=== PATIENT | female | born 1940 | race Caucasian/White ===

== ENCOUNTER 2016-10-29 11:54 | Emergency (ER) | payer OTHER ==
[~2016-10-29] VITALS: Ht 165.1 cm; Wt 72.0 kg
[~2016-10-29 11:54] MED LIST: BLOOD PRESSURE MED PO; GLUCTAB PO; LORTA5 PO; MELO7.5T PO; SIMV20 PO
[2016-10-29 12:02] VITALS: BP 169/81; PULSE 68; RESP 20; TEMP 98.4; O2SAT 97
[2016-10-29] MEDS ORDERED: METF500T PO (12:09)
[2016-10-29] MEDS ORDERED: ATEN25TA PO (12:09)
[2016-10-29] MEDS ORDERED: SIMV20TA PO (12:09)
[2016-10-29] MEDS ORDERED: SODIUM CHLOR 0.9% 1000 ML INJ 1,000 ML IV ONE (12:13)
[2016-10-29] MEDS ORDERED: SODIUM CHLORIDE 0.9% FLUSH 5 ML FLUSH IVF PRN (12:15)
[2016-10-29] MEDS ORDERED: MECLIZINE HCL 25 MG TAB PO ONE (12:15)
[2016-10-29] MEDS ORDERED: ONDANSETRON HCL 4 MG/2 ML VIAL IVP ONE (12:15)
--- NOTE | 2016-10-29 12:20 | PD ---
HPI Chief Complaint: Dizziness Time Seen by Provider: 12:08 Travel History International Travel<30 days: No Contact w/Intl Traveler<30days: No Traveled to known affect area: No History of Present Illness HPI The patient was seen and examined in the presence of the nurse. This patient complains of a room spinning dizziness sensation and intermittent pounding headache. Symptoms have been present for 7 days. They're moderately severe. No alleviating factors. Dizziness is worse with opening her eyes were turning her head to either side. Denies fever or head injury. She takes no blood thinners. PFSH Past Medical History High Cholesterol: Yes Diabetes: Yes Patient Takes Glucophage: Yes Diminished Hearing: No Diverticulitis: Yes Hypertension: Yes Immunizations Current: Yes ?: Not Menopausal: Yes Past Surgical History Section: Yes Genitourinary Surgery: Yes (BLADDER TACKED) Gynecologic Surgery: Yes (B/L OOPHRECTOMY) Tonsillectomy: Yes Social History Alcohol Use: No Tobacco Use: No Substance Use: No Allergies-Medications (Allergen,Severity, Reaction): Coded Allergies: No Known Allergies (Verified , 10/29/16) Reported Meds & Prescriptions Reported Meds & Active Scripts Active Reported Amlodipine-Benazepril 5-10 Mg Cap 1 Cap PO DAILY Atenolol 25 Mg Tab 12.5 Mg PO DAILY Simvastatin 20 Mg Tab 20 Mg PO DAILY Metformin (Metformin HCl) 500 Mg Tab 500 Mg PO BIDPC With meals [Blood Pressure Med] Unknown Dose PO DAILY Review of Systems General / Constitutional: No: Fever Eyes: No: Visual changes HENT: Positive: Headaches, Vertigo Cardiovascular: No: Chest Pain or Discomfort Respiratory: No: Shortness of Breath Gastrointestinal: Positive: Nausea, Vomiting, No: Abdominal Pain Genitourinary: No: Dysuria Musculoskeletal: No: Pain Skin: No Rash Neurologic: Positive: Dizziness, Headache, No: Weakness Psychiatric: No: Depression Endocrine: No: Polydipsia Hematologic/Lymphatic: No: Easy Bruising Physical Exam Narrative GENERAL: Well-nourished, well-developed patient with nausea and dizziness SKIN: Warm and dry. HEAD: Atraumatic. Normocephalic. EYES: Pupils equal and round. No scleral icterus. No injection or drainage. ENT: No nasal bleeding or discharge. Mucous membranes pink and moist. NECK: Trachea midline. No JVD. No meningeal signs CARDIOVASCULAR: Regular rate and rhythm. No murmur appreciated. RESPIRATORY: No accessory muscle use. Clear to auscultation. Breath sounds equal bilaterally. GASTROINTESTINAL: Abdomen soft, non-tender, nondistended. Hepatic and splenic margins not palpable. MUSCULOSKELETAL: No obvious deformities. No clubbing. No cyanosis. No edema. NEUROLOGICAL: Awake and alert. No obvious cranial nerve deficits. Motor grossly within normal limits. Normal speech. PSYCHIATRIC: Appropriate mood and affect; insight and judgment normal. Data Data Last Documented VS Vital Signs Date Time Temp Pulse Resp B/P Pulse Ox O2 Delivery O2 Flow Rate FiO2 10/29/16 12:10 82 98 Room Air 10/29/16 12:02 98.4 20 169/81 Orders Basic Metabolic Panel (Bmp) (10/29/16 12:13) Complete Blood Count With Diff (10/29/16 12:13) Ct Brain W/O Iv Contrast(Rout) (10/29/16 12:13) Ecg Monitoring (10/29/16 12:13) Iv Access Insert/Monitor (10/29/16 12:13) Oximetry (10/29/16 12:13) Meclizine (Antivert) (10/29/16 12:15) Ondansetron Inj (Zofran Inj) (10/29/16 12:15) Sodium Chloride 0.9% Flush (Ns Flush) (10/29/16 12:15) Sodium Chlor 0.9% 1000 Ml Inj (Ns 1000 M (10/29/16 12:13) Labs Laboratory Tests Test 10/29/16 12:15 White Blood Count 7.1 TH/MM3 Red Blood Count 3.92 MIL/MM3 Hemoglobin 11.6 GM/DL Hematocrit 35.2 % Mean Corpuscular Volume 89.7 FL Mean Corpuscular Hemoglobin 29.5 PG Mean Corpuscular Hemoglobin 32.9 % Concent Red Cell Distribution Width 12.7 % Platelet Count 238 TH/MM3 Mean Platelet Volume 7.8 FL Neutrophils (%) (Auto) 52.2 % Lymphocytes (%) (Auto) 39.1 % Monocytes (%) (Auto) 4.2 % Eosinophils (%) (Auto) 4.0 % Basophils (%) (Auto) 0.5 % Neutrophils # (Auto) 3.7 TH/MM3 Lymphocytes # (Auto) 2.8 TH/MM3 Monocytes # (Auto) 0.3 TH/MM3 Eosinophils # (Auto) 0.3 TH/MM3 Basophils # (Auto) 0.0 TH/MM3 CBC Comment DIFF FINAL Differential Comment Sodium Level 140 MEQ/L Potassium Level 4.6 MEQ/L Chloride Level 107 MEQ/L Carbon Dioxide Level 21.8 MEQ/L Anion Gap 11 MEQ/L Blood Urea Nitrogen 17 MG/DL Creatinine 1.20 MG/DL Estimat Glomerular Filtration 44 ML/MIN Rate Random Glucose 120 MG/DL Calcium Level 9.4 MG/DL [facility] Medical Decision Making Medical Screen Exam Complete: Yes Emergency Medical Condition: Yes Medical Record Reviewed: Yes Differential Diagnosis Positional vertigo, labyrinthitis, intracranial hemorrhage, migraine Narrative Course I have reviewed the patient's electronic medical record. Patient is neurologically intact. IV placed I gave her IV Zofran and 1 L normal saline IV. After nausea improved she will receive meclizine dose Brain CT is normal CBC is normal Metabolic profile is normal I reviewed her EKG which shows sinus rhythm at [address] elevation Extended cardiac monitoring reveals sinus rhythm without ectopy On recheck she feels improved Her presentation is most consistent with positional vertigo. No suspicion of CVA I prescribed her some meclizine and Zofran Diagnosis Primary Impression: Benign positional vertigo Qualified Code: H81.10 - Benign positional vertigo, unspecified laterality Additional Impression: Headache Qualified Code: G44.209 - Acute non intractable tension-type headache Additional Instructions: The patient was advised to follow up with their physician and return if they worsen. The patient was warned about potential sedation for the medications they will receive on prescription. Med/Other Pt SpecificInfo: Prescription(s) given Scripts Meclizine 25 Mg Tab25 Mg PO TID PRN (VERTIGO) #21 TAB Ref 0 Prov:George Mcqueen MD 10/29/16 Ondansetron (Zofran)4 Mg Tab4 Mg PO Q6HR PRN (NAUSEA OR VOMITING) #12 TAB Ref 0 Prov:George Mcqueen MD 10/29/16 Disposition: 01 DISCHARGE HOME Condition: Stable George Mcqueen MD Oct 29, 2016 12:20
[2016-10-29 12:34] LABS: AUTOMATED NEUTROPHIL # 3.7 TH/MM3 (1.8-7.7); BASOPHIL % 0.5 % (0.0-2.0); EOSINOPHIL # 0.3 TH/MM3 (0-0.4); HEMATOCRIT 35.2 % (35.0-46.0); HEMO FLAGS DIFF FINAL; LYMPH % 39.1 % (9.0-44.0); LYMPHOCYTE # 2.8 TH/MM3 (1.0-4.8); MEAN CELL VOLUME 89.7 FL (80.0-100.0); MEAN CORPUSCULAR HEMOGLOBIN 29.5 PG (27.0-34.0); MEAN CORPUSCULAR HGB CONC 32.9 % (32.0-36.0); MONO % 4.2 % (0.0-8.0); NEUT % 52.2 % (16.0-70.0); PLATELET COUNT 238 TH/MM3 (150-450); RED BLOOD COUNT 3.92 MIL/MM3 (4.00-5.30); RED CELL DISTRIBUTION WIDTH 12.7 % (11.6-17.2); WHITE BLOOD COUNT 7.1 TH/MM3 (4.0-11.0)
[2016-10-29 12:42] LABS: POTASSIUM 4.6 MEQ/L (3.5-5.1)
[2016-10-29 12:45] LABS: BICARBONATE 21.8 MEQ/L (21.0-32.0)
--- NOTE | 2016-10-29 13:02 | RADHPO ---
EXAM DATE/TIME: 10/29/2016 12:40 [facility] COMPARISON: No previous studies available for comparison. INDICATIONS : Dizziness and nausea today. RADIATION DOSE: 60.14 CTDIvol (mGy) MEDICAL HISTORY : Hypertension. diabetes SURGICAL HISTORY : None. ENCOUNTER: Initial ACUITY: 1 day PAIN SCALE: 0/10 LOCATION: Bilateral head TECHNIQUE: Multiple contiguous axial images were obtained of the head. Using automated exposure control and adj ustment of the mA and/or kV according to patient size, radiation dose was kept as low as reasonably a chievable to obtain optimal diagnostic quality images. FINDINGS: CEREBRUM: The ventricles are normal for age. There is bilateral cortical atrophy characteristic for patient's a ge. No evidence of midline shift, mass lesion, hemorrhage or acute infarction. No extra-axial fluid collections are seen. POSTERIOR FOSSA: The cerebellum and brainstem are intact. The 4th ventricle is midline. The cerebellopontine angle i s unremarkable. EXTRACRANIAL: The visualized portion of the orbits is intact. SKULL: The calvaria is intact. No evidence of skull fracture. CONCLUSION: Normal examination for a patient of this age. Gumaro Joy MD on October 29, 2016 at 13:00 Board Certified Radiologist. This report was verified electronically.
[2016-10-29] MEDS ORDERED: AMLO5CAP PO (13:21)
[2016-10-29] MEDS ORDERED: MECL-62 PO (13:26)
[2016-10-29] MEDS ORDERED: ZOFR4TAB PO (13:26)
[2016-10-29 13:29] VITALS: BP 163/81; O2SAT 100
--- NOTE | 2016-10-30 13:19 | EKG ---
Date Performed: 10/29/2016 Time Performed: 12:10:56 PTAGE: 76 years EKG: Sinus rhythm Lateral T wave changes are nonspecific Borderline ECG Compared to prior tracing no significant cortes e PREVIOUS TRACING : 07/10/2011 10.05 DOCTOR: Robi Lynch Interpretating Date/Time 10/30/2016 13:15:11
== END 2016-10-29 13:33 | disposition home or self-care (01) ==
LOC: PHED 11:54
DX: H81.10 Benign paroxysmal vertigo, unspecified ear (principal); R51 Headache; E78.00 Pure hypercholesterolemia, unspecified; E11.9 Type 2 diabetes mellitus without complications; I10 Essential (primary) hypertension; R94.31 Abnormal electrocardiogram [ECG] [EKG]
CPT/HCPCS: 70450; 80048; 85025; 93005; 96361; 96374; 99284; J2405; J7030

== ENCOUNTER 2017-07-27 06:09 | Emergency (ER) | payer OTHER ==
[~2017-07-27] VITALS: Ht 165.1 cm; Wt 58.8 kg
[~2017-07-27 06:09] MED LIST changes: +AMLO5CAP PO; +ATEN25TA PO; -GLUCTAB PO; -LORTA5 PO; +MECL-62 PO; -MELO7.5T PO; +METF500T PO; -SIMV20 PO; +SIMV20TA PO; +ZOFR4TAB PO
[2017-07-27 06:16] VITALS: BP 158/70; PULSE 71; RESP 20; TEMP 97.7; O2SAT 98
[2017-07-27 06:25] VITALS: BP 158/70; PULSE 71; RESP 20; TEMP 97.7; O2SAT 98
[2017-07-27] MEDS ORDERED: SODIUM CHLOR 0.9% 1000 ML INJ 1,000 ML IV SCH (06:41)
[2017-07-27] MEDS ORDERED: SODIUM CHLORIDE 0.9% FLUSH 10 ML FLUSH IV FLUSH PRN (06:45)
--- NOTE | 2017-07-27 06:47 | PD ---
HPI Chief Complaint: Abdominal Pain Time Seen by Provider: 06:33 Travel History International Travel<30 days: No Contact w/Intl Traveler<30days: No Traveled to known affect area: No History of Present Illness HPI This is a 77-year-old female who has a history of diverticulitis who presents to the emergency department with left lower quadrant abdominal pain that started last evening, constant, moderate severity with no associated fevers or chills. She denies any nausea or vomiting. She did have some loose stool last night. She denies any dysuria, urinary urgency or frequency. She had diverticulitis last in 2008 and at that time had an exploratory surgery for abscess. She's had a hysterectomy and a cholecystectomy. PFSH Past Medical History High Cholesterol: Yes Diabetes: Yes Patient Takes Glucophage: No Diminished Hearing: No Diverticulitis: Yes Hypertension: Yes Immunizations Current: Yes Tetanus Vaccination: > 5 Years ?: Not Menopausal: Yes Past Surgical History Section: Yes Cholecystectomy: Yes Genitourinary Surgery: Yes (BLADDER TACKED) Gynecologic Surgery: Yes (B/L OOPHRECTOMY) Hysterectomy: Yes Tonsillectomy: Yes Social History Alcohol Use: Yes (RARELY) Tobacco Use: No Substance Use: No Allergies-Medications (Allergen,Severity, Reaction): Coded Allergies: No Known Allergies (Verified , 07/27/17) Reported Meds & Prescriptions Reported Meds & Active Scripts Active Reported Atenolol 25 Mg Tab 12.5 Mg PO DAILY Simvastatin 20 Mg Tab 20 Mg PO DAILY Metformin (Metformin HCl) 500 Mg Tab 500 Mg PO BIDPC With meals Review of Systems Except as stated in HPI: all other systems reviewed are Neg Physical Exam Narrative GENERAL:Well appearing, no acute distress SKIN: Focused skin assessment warm and dry. HEAD: Atraumatic. Normocephalic. EYES: Pupils equal and round. No injection or drainage. ENT: Moist mucous membranes NECK: Trachea midline. CARDIOVASCULAR: Regular rate and rhythm. No murmur appreciated. RESPIRATORY: Clear to auscultation. Breath sounds equal bilaterally. GASTROINTESTINAL: Abdomen soft, tender to palpation in the left upper and left lower quadrants with guarding MUSCULOSKELETAL: No obvious deformities. NEUROLOGICAL: Awake and alert. No obvious cranial nerve deficits. Moving all extremities. PSYCHIATRIC: Appropriate mood and affect; insight and judgment normal. Data Data Last Documented VS Vital Signs Date Time Temp Pulse Resp B/P (MAP) Pulse Ox O2 Delivery O2 Flow Rate FiO2 07/27/17 06:25 97.7 71 20 158/70 (99) 98 Orders Orders Complete Blood Count With Diff (07/27/17 06:41) Comprehensive Metabolic Panel (07/27/17 06:41) Lipase (07/27/17 06:41) Urinalysis - C+S If Indicated (07/27/17 06:41) Ct Abd/Pel W Iv Contrast(Rout) (07/27/17 06:41) Iv Access Insert/Monitor (07/27/17 06:41) Ecg Monitoring (07/27/17 06:41) Oximetry (07/27/17 06:41) Sodium Chlor 0.9% 1000 Ml Inj (Ns 1000 M (07/27/17 06:41) Sodium Chloride 0.9% Flush (Ns Flush) (07/27/17 06:45) MDM Medical Decision Making Medical Screen Exam Complete: Yes Emergency Medical Condition: Yes Differential Diagnosis Diverticulitis, pancreatitis, colitis, nephrolithiasis, pyelonephritis Narrative Course This is a 77-year-old female who presents to the emergency department with left lower quadrant abdominal pain that started last evening. My chief concern would be for diverticulitis. Labs will be obtained and CT abdomen and pelvis was ordered. Oncoming physician will follow-up on results. Sheri Cason MD Jul 27, 2017 06:47
[2017-07-27 07:21] LABS: AUTOMATED NEUTROPHIL # 6.8 TH/MM3 (1.8-7.7); BASOPHIL % 0.3 % (0.0-2.0); EOSINOPHIL # 0.4 TH/MM3 (0-0.4); EOSINOPHIL % 3.7 % (0.0-4.0); HEMATOCRIT 34.5 % (35.0-46.0); HEMOGLOBIN 11.5 GM/DL (11.6-15.3); LYMPH % 20.2 % (9.0-44.0); LYMPHOCYTE # 1.9 TH/MM3 (1.0-4.8); MEAN CELL VOLUME 88.4 FL (80.0-100.0); MEAN CORPUSCULAR HEMOGLOBIN 29.4 PG (27.0-34.0); MEAN CORPUSCULAR HGB CONC 33.2 % (32.0-36.0); MEAN PLATELET VOLUME 7.3 FL (7.0-11.0); MONO % 4.4 % (0.0-8.0); MONOCYTE # 0.4 TH/MM3 (0-0.9); NEUT % 71.4 % (16.0-70.0); PLATELET COUNT 284 TH/MM3 (150-450); RED CELL DISTRIBUTION WIDTH 12.8 % (11.6-17.2); WHITE BLOOD COUNT 9.5 TH/MM3 (4.0-11.0)
[2017-07-27 07:26] LABS: CHLORIDE 103 MEQ/L (98-107); SODIUM (NA) 137 MEQ/L (136-145)
[2017-07-27 07:30] LABS: BLOOD UREA NITROGEN 23 MG/DL (7-18); CALCIUM 9.7 MG/DL (8.5-10.1); GLUCOSE,RANDOM 90 MG/DL (74-106); LIPASE 307 U/L (73-393)
[2017-07-27 07:33] LABS: BILIRUBIN, URINE NEG (NEG); BLOOD, URINE NEG (NEG); GLUCOSE,URINE NEG (NEG); KETONE, URINE NEG (NEG); NITRITE,URINE NEG (NEG); PH, URINE 5.5 (5.0-8.5); URINE LEUKOCYTE ESTERASE NEG (NEG)
[2017-07-27 07:33] LABS: ALT (GPT) 21 U/L (10-53); AST (GOT) 18 U/L (15-37); GLOMERULAR FILTRATION RATE 40 ML/MIN (>89)
[2017-07-27 07:35] LABS: TOTAL BILIRUBIN ADULT 0.4 MG/DL (0.2-1.0); TOTAL PROTEIN 7.9 GM/DL (6.4-8.2)
[2017-07-27 07:36] LABS: ALKALINE PHOSPHATASE 84 U/L (45-117)
[2017-07-27 07:40] LABS: RBC, URINE 0-3 /hpf (0-3); URINE COLOR YELLOW (YELLW/STRAW)
[2017-07-27 07:41] LABS: SQUAMOUS EPITHELIAL CELL URINE 0-5 /hpf (0-5)
[2017-07-27] MEDS ORDERED: IODIXANOL 320 MG/ML 10 ML VIAL (for Rad CT) IVCONTRAST ONE (07:50)
--- NOTE | 2017-07-27 08:48 | RADRPT ---
EXAM DATE/TIME: 07/27/2017 07:48 [facility] COMPARISON: No previous studies available for comparison. INDICATIONS : Left lower quadrant pain. IV CONTRAST: 50 cc Visipaque (iodixanol) IV ORAL CONTRAST: No oral contrast ingested. RADIATION DOSE: 5.90 CTDIvol (mGy) MEDICAL HISTORY : Diabetes mellitus type 2. Diverticulitis. Hypertension. SURGICAL HISTORY : Cholecystectomy. section.Hysterectomy.Bladder tuck. ENCOUNTER: Initial ACUITY: 1 day PAIN SCALE: 5/10 LOCATION: Left lower quadrant TECHNIQUE: Volumetric scanning of the abdomen and pelvis was performed. Using automated exposure control and ad justment of the mA and/or kV according to patient size, radiation dose was kept as low as reasonably achievable to obtain optimal diagnostic quality images. DICOM format image data is available electro nically for review and comparison. FINDINGS: LOWER LUNGS: The visualized lower lungs are clear. LIVER: Homogeneous density without lesion. There is no dilation of the biliary tree. The gallbladder is reyna gically absent. SPLEEN: Normal size without lesion. PANCREAS: Within normal limits. KIDNEYS: Normal in size and shape. There is no mass, stone or hydronephrosis. ADRENAL GLANDS: Within normal limits. VASCULAR: There is no aortic aneurysm. BOWEL/MESENTERY: There is an acute inflammatory process involving the distal descending colon. There is an inflamed di verticulum with stranding of the adjacent fat. Wall thickening. No obstruction, perforation, or absce ss. Remaining bowel structures are unremarkable. No free air or free fluid. ABDOMINAL WALL: Within normal limits. RETROPERITONEUM: There is no lymphadenopathy. BLADDER: No wall thickening or mass. REPRODUCTIVE: Within normal limits. INGUINAL: There is no lymphadenopathy or hernia. MUSCULOSKELETAL: Within normal limits for patient age. CONCLUSION: 1. Acute distal descending colon diverticulitis. No perforation, abscess, or obstruction. 2. Prior cholecystectomy. Blas Ash Jr., MD on July 27, 2017 at 8:28 Board Certified Radiologist. This report was verified electronically.
[2017-07-27] MEDS ORDERED: CIPR-9 PO (09:01)
[2017-07-27] MEDS ORDERED: IBUP-1129 PO (09:01)
[2017-07-27] MEDS ORDERED: METR-1 PO (09:01)
--- NOTE | 2017-07-27 09:01 | PD ---
Physical Exam Date Seen by Provider: Jul 27, 2017 Time Seen by Provider: 07:00 Narrative 77-year-old female patient seen initially by Dr. Cason, please see her note for further details, awaiting CAT scan in for further evaluation. Laboratory Tests Test 07/27/17 06:58 07/27/17 07:06 Red Blood Count 3.90 MIL/MM3 (4.00-5.30) Hemoglobin 11.5 GM/DL (11.6-15.3) Hematocrit 34.5 % (35.0-46.0) Neutrophils (%) (Auto) 71.4 % (16.0-70.0) Blood Urea Nitrogen 23 MG/DL (7-18) Creatinine 1.30 MG/DL (0.50-1.00) Estimat Glomerular Filtration Rate 40 ML/MIN (>89) Last 24 hours Impressions Abdomen/Pelvis CT 07/27/1741 Signed Impressions: Service Date/Time: , July 27, 2017 07:48 - CONCLUSION: 1. Acute distal descending colon diverticulitis. No perforation, abscess, or obstruction. 2. Prior cholecystectomy. Blas Ash Jr., MD BUN/creatinine creatinine is mildly elevated, I suspect some mild dehydration. Her creatinine is fairly close to baseline. Her CAT scan is showing signs of diverticulitis which she has a history of. No signs of diverticular abscesses or any other acute processes. At this point, patient is resting comfortably in the ER reevaluation at 8:50 AM. My plan would be to release her with treatment for diverticulitis and follow-up with primary care physician. Return for worsening in symptoms as needed. The plan has been discussed with her and she states understanding. Data Data Last Documented VS Vital Signs Date Time Temp Pulse Resp B/P (MAP) Pulse Ox O2 Delivery O2 Flow Rate FiO2 07/27/17 06:25 97.7 71 20 158/70 (99) 98 Orders Orders Complete Blood Count With Diff (07/27/17 06:41) Comprehensive Metabolic Panel (07/27/17 06:41) Lipase (07/27/17 06:41) Urinalysis - C+S If Indicated (07/27/17 06:41) Ct Abd/Pel W Iv Contrast(Rout) (07/27/17 06:41) Iv Access Insert/Monitor (07/27/17 06:41) Ecg Monitoring (07/27/17 06:41) Oximetry (07/27/17 06:41) Sodium Chlor 0.9% 1000 Ml Inj (Ns 1000 M (07/27/17 06:41) Sodium Chloride 0.9% Flush (Ns Flush) (07/27/17 06:45) Iodixanol 320 Inj (Rad Ct) (Visipaque 32 (07/27/17 07:50) Labs Laboratory Tests Test 07/27/17 06:58 07/27/17 07:06 Urine Collection Type CLEAN CATCH Urine Color YELLOW Urine Turbidity CLEAR Urine pH 5.5 Urine Specific [place] 1.017 Urine Protein NEG mg/dL Urine Glucose (UA) NEG mg/dL Urine Ketones NEG mg/dL Urine Occult Blood NEG Urine Nitrite NEG Urine Bilirubin NEG Urine Leukocyte Esterase NEG Urine RBC 0-3 /hpf Urine Squamous Epithelial Cells 0-5 /hpf Microscopic Urinalysis Comment CULT NOT INDICATED Urine Collection Time 06:58 White Blood Count 9.5 TH/MM3 Red Blood Count 3.90 MIL/MM3 Hemoglobin 11.5 GM/DL Hematocrit 34.5 % Mean Corpuscular Volume 88.4 FL Mean Corpuscular Hemoglobin 29.4 PG Mean Corpuscular Hemoglobin Concent 33.2 % Red Cell Distribution Width 12.8 % Platelet Count 284 TH/MM3 Mean Platelet Volume 7.3 FL Neutrophils (%) (Auto) 71.4 % Lymphocytes (%) (Auto) 20.2 % Monocytes (%) (Auto) 4.4 % Eosinophils (%) (Auto) 3.7 % Basophils (%) (Auto) 0.3 % Neutrophils # (Auto) 6.8 TH/MM3 Lymphocytes # (Auto) 1.9 TH/MM3 Monocytes # (Auto) 0.4 TH/MM3 Eosinophils # (Auto) 0.4 TH/MM3 Basophils # (Auto) 0.0 TH/MM3 CBC Comment DIFF FINAL Differential Comment Blood Urea Nitrogen 23 MG/DL Creatinine 1.30 MG/DL Random Glucose 90 MG/DL Total Protein 7.9 GM/DL Albumin 4.0 GM/DL Calcium Level 9.7 MG/DL Alkaline Phosphatase 84 U/L Aspartate Amino Transf (AST/SGOT) 18 U/L Alanine Aminotransferase (ALT/SGPT) 21 U/L Total Bilirubin 0.4 MG/DL Sodium Level 137 MEQ/L Potassium Level 4.2 MEQ/L Chloride Level 103 MEQ/L Carbon Dioxide Level 28.0 MEQ/L Anion Gap 6 MEQ/L Estimat Glomerular Filtration Rate 40 ML/MIN Lipase 307 U/L MDM Medical Record Reviewed: Yes Supervised Visit with MAYUR: No Diagnosis Primary Impression: Diverticulitis Med/Other Pt SpecificInfo: Prescription(s) given Scripts Ibuprofen (Motrin Ib) 200 Mg Tablet 600 MG PO QID, #20 Prov: Ignacia Orozco MD 07/27/17 Ciprofloxacin (Cipro) 500 Mg Tab 500 MG PO BID for Infection for 7 Days, #14 TAB 0 Refills Prov: Ignacia Orozco MD 07/27/17 Metronidazole (Flagyl) 500 Mg Tab 500 MG PO TID for Infection for 7 Days, TAB 0 Refills Prov: Ignacia Orozco MD 07/27/17 Disposition: 01 DISCHARGE HOME Condition: Stable Ignacia Orozco MD Jul 27, 2017 09:01
[2017-07-27 09:18] VITALS: BP 144/80
== END 2017-07-27 09:19 | disposition home or self-care (01) ==
LOC: PHED 06:09
DX: K57.32 Diverticulitis of large intestine without perforation or abscess without bleeding (principal); I10 Essential (primary) hypertension; E11.9 Type 2 diabetes mellitus without complications; Z79.84 Long term (current) use of oral hypoglycemic drugs; Z90.49 Acquired absence of other specified parts of digestive tract
CPT/HCPCS: 74177; 80053; 81001; 83690; 85025; 96360; 99285; J7030; Q9967